=== PATIENT | female | born 1995 | race Caucasian/White ===

== ENCOUNTER 2018-08-10 10:37 | Emergency (ER) | payer OTHER ==
--- OUTSIDE RECORDS SUMMARY | 2018-08-10 10:53 | XMS REPORT | Continuity of Care Document ---
:1995 External Reference #:[id number] Author Name Nilo Islas NP Address [address] [place] [id number] Care Team Providers Name Role Phone Nilo Islas NP Care Team Information [employer] Unavailable Payers Date Identification Numbers Payment Provider Subscriber Effective: 2016 Policy Number: [id number] [facility] [place] Expires: 2018 PayID: [id number] [address] [address] [place] [phone] Policy Number: [id number] [facility] [place] PayID: [id number] [address] [address] [place] [address] Advance Directives Description No Information Available Problems Description No Information Family History Date Family Member(s) Observation Comments Father Hypercholesterolemia Mother Good Health Children None First Sister Good Health Social History Type Date Description Comments Sex Unknown Marital Status Single Occupation Student Tobacco Use Start: Unknown Currently Smokes an Occasional Cigar ETOH Use Occasionally consumes alcohol Tobacco Use Start: Unknown Patient is a current smoker, smokes some days Allergies, Adverse Reactions, Alerts Date Description Reaction Status Severity Comments 07/03/2015 Sulfa Antibiotics Active Medications Medication Date Status Form Strength Qnty SIG Indications Ordering Provider Fluoxetine HCL 08/08 Active Capsules 40mg 60cap 1 by F41.9 s mouth Nilo, every day [employer]ANT Temazepam 06/30 Active Capsules 15mg 60cap 1 - 2 by s mouth Nilo, every [employer]ANT night at bedtime as needed. Alprazolam 05/30 Active Tablets 0.25mg 90tab one by F41.9 s mouth Nilo, three [employer]OVEMENT CONSULTANT times a day as needed. Lo Loestrin Fe 07/21 Active Tablets 1mg-10 28tab take 1 mcg / 10 s tablet by Nilo, mcg mouth [employer] IM[employer]OVEMENT CONSULTANT every day Methylprednisolone 07/13 Hx Tablets 4mg 1pack as directed Nilo, - dose pack [employer] IM[employer]OVEMENT CONSULTANT 08/08 Fluoxetine HCL 06/13 Hx Capsules 20mg 30cap 1 by F41.9 Janel, (PMDD) s mouth Nilo, - every day [employer]OVEMENT CONSULTANT 08/08 Fluoxetine HCL 05/30 Hx Capsules 10mg 30cap 1 by F41.9 Graham s mouth Nilo, - everyday [employer] IMPROVEMENT CONSULTANT 06/13 Azithromycin 08/26 Hx Tablets 250mg 6tabs 2 by R06.02 Graham mouth Nilo, - every day CONT[employer] IMPROVEMENT CONSULTANT 11/19 x 1 day then 1 by mouth every day x 4 days Proventil HFA 08/26 Hx Aerosol 108(90Bas 1unit inhale 2 R06. e) s puffs by Nilo, - mcg/Act mouth [employer] IM[employer]OVEMENT CONSULTANT 11/19 every hours as needed Guaifenesin ac 08/26 Hx Syrup 100-10mg/ 120ml 1-2 R06. 5ML teaspoon Nilo, - by mouth [employer]OVEMENT CONSULTANT 11/19 every hours as needed Lo Estren 07/08 Hx Nilo, - [employer]OVEMENT CONSULTANT 07/08 Loestrin 1.5/30 (21) 07/08 Hx Tablets 1.5-30mg- 1Pack as mcg directed Nilo, - [employer]ANT 07/21 Immunizations CPT Code Status Date Vaccine Lot # [id number] Refused 06/13/2018 Influenza Vac, Quadrivalent, Split, 0.5mL Dosage, Im Use Vital Signs Date Vital Result Comment 08/08/2018 4:18pm Body Temperature 97.9 F Heart Rate 59 /min BP Systolic 132 mmHg BP Diastolic 76 mmHg Weight 123.00 lb BMI (Body Mass Index) 19.3 kg/m2 Height 67 inches 5'7" Respiratory Rate 16 /min O2 % BldC Oximetry 99 % 07/12/2018 5:08pm Body Temperature 97.9 F Heart Rate 86 /min BP Systolic 120 mmHg BP Diastolic 78 mmHg Weight 127.00 lb BMI (Body Mass Index) 19.9 kg/m2 Height 67 inches 5'7" O2 % BldC Oximetry 99 % 07/06/2018 11:23am Body Temperature 98.4 F Heart Rate 80 /min BP Systolic 130 mmHg BP Diastolic 76 mmHg Weight 130.00 lb BMI (Body Mass Index) 20.5 kg/m2 Height 66.75 inches 5'6.75" Respiratory Rate 17 /min 06/30/2018 4:02pm Body Temperature 98.2 F Heart Rate 78 /min BP Systolic 124 mmHg BP Diastolic 76 mmHg Weight 130.00 lb BMI (Body Mass Index) 20.5 kg/m2 Height 66.75 inches 5'6.75" Respiratory Rate 16 /min 06/13/2018 3:33pm Body Temperature 97.7 F Heart Rate 74 /min BP Systolic 110 mmHg BP Diastolic 70 mmHg Weight 137.00 lb BMI (Body Mass Index) 21.6 kg/m2 Height 66.75 inches 5'6.75" Respiratory Rate 16 /min 05/30/2018 11:10am BP Systolic 164 mmHg BP Diastolic 100 mmHg Weight 134.00 lb 11/19/2017 2:52pm BP Systolic 118 mmHg BP Diastolic 70 mmHg Weight 136.00 lb BMI (Body Mass Index) 21.9 kg/m2 Height 66.0 inches 5'6" 08/27/2015 2:30pm Body Temperature 100.7 F Heart Rate 76 /min BP Systolic 122 mmHg BP Diastolic 70 mmHg Weight 135.00 lb 07/23/2015 4:48pm Urine Dipstick - Blood NEGATIVE Urine Dipstick - Protein NEGATIVE Urine Dipstick - Glucose NEGATIVE Urine Dipstick - Leukocytes NEGATIVE 07/11/2015 7:09pm Urine Dipstick - Blood NEGATIVE Urine Dipstick - Protein TRACE Urine Dipstick - Glucose NEGATIVE Urine Dipstick - Leukocytes NEGATIVE 07/03/2015 3:27pm Body Temperature 99.4 F BP Systolic 100 mmHg BP Diastolic 62 mmHg Weight 131.50 lb BMI (Body Mass Index) 21.2 kg/m2 Height 66 inches 5'6" Urine Dipstick - Blood NEGATIVE Urine Dipstick - Protein 1+ Urine Dipstick - Glucose NEGATIVE Urine Dipstick - Leukocytes NEGATIVE Left ear audiology results R Right ear audiology results R Results Test Date Facility Test Result H/L Range Note Laboratory test [facility] 1 finding [phone] [facility] <SEE NOTE> Affirm [facility] Trichomonas Negative Negative 8 Vaginalis Gardnerella Vaginalis Negative Negative [facility] Species Negative Negative GC/Chlamydia By Dna 11/19/2017 [facility] Chlamydia by Dna NEGATIVE Negative Probe Probe GC by Dna Probe NEGATIVE Negative Laboratory test finding 11/19/2017 [facility] Pap SEE NOTE 2 Laboratory test finding 08/02/2015 [facility] Potassium 4.3 mmol/L 3.5-5.2 3 Lipid Treatment 07/23/2015 [facility] Cholesterol 171 mg/dL 50-199 4 Triglycerides 87 mg/dL 30-200 HDL 67 mg/dL 35-85 5 Chol/ HDL Ratio 2.6 ratio Low 3.7-5.6 VLDL 17 mg/dL 2-29 LDL (Calc) 87 mg/dL 20-99 6 Alt 17 U/L 3-42 Ast 20 U/L 8-42 CBC With Auto Diff 07/23/2015 [facility] WBC 8.2 K/uL 4.1-11.0 RBC 4.78 M/uL 4.00-5.40 Hemoglobin 14.5 gm/dL 12.0-16.0 Hematocrit 43.5 % 36.0-47.0 MCV 91.1 fL 80.0-97.0 MCH 30.3 pg 27.0-32.0 MCHC 33.3 g/dL 32.0-36.0 RDW 13.1 % 11.5-14.5 PLT Count 232 K/ul 140-400 Neutrophil 61.6 % 35.0-75.0 Lymphocyte 31.0 % 16.0-52.0 Monocyte 6.7 % 2.0-10.0 Eosinophil 0.5 % 0.0-5.0 Basophil 0.2 % 0.0-4.0 Abs Neutrophils 5.1 K/uL 2.1-8.0 Abs Lymphocytes 2.5 K/uL 0.8-5.5 Abmon 0.6 K/uL 0.1-1.0 Abs Eosinophils 0.0 K/uL 0.0-0.5 Abs Basophils 0.0 K/uL 0.0-0.3 Laboratory test finding 07/23/2015 [facility] TSH 1.50 uIU/mL 0.35-4.94 Comprehensive Metabolic (CMP) 07/23/2015 [facility] Sodium 137 mmol/L 134- 142 Potassium 5.4 No visible h <SEE NOTE> mmol/L High 3.5-5.2 7 Chloride 102 mmol/L 97-109 Carbon Dioxide 25 mmol/L 24-34 Glucose 73 mg/dL 70-105 BUN 13 mg/dL 6-26 Creatinine 0.8 mg/dL 0.5-1.4 Calcium 9.5 mg/dL 8.5-10.2 Total Protein 7.3 g/dL 6.0-8.0 Albumin 4.6 g/dL 3.6-4.9 Globulin 2.7 g/dL 2.0-3.5 A/G Ratio 1.7 Ratio 1.0-2.2 Total Bilirubin 0.6 mg/dL 0.1-1.3 Alkaline Phosphatase 31 U/L 24-140 Alt 17 U/L 3-42 Ast 20 U/L 8-42 Anion Gap 15 mmol/L High 6-14 Sybil Egfr >60 >60 8 Non Sybil Egfr >60 >60 9 Microalb/Creat Panel 07/11/2015 [facility] Creatinine, Urine 118.1 mg/dL Microalb/Creat Urine 37.67 ug/mgCreat High 0.00-30.00 Microalbumin 44.5 ug/ml High 0.0-20.0 Laboratory test 07/03/2015 [facility] Pap SEE NOTE 10, 11 finding Affirm 07/03/2015 [facility] Trichomonas Negative Negative Vaginalis Gardnerella Vaginalis Negative Negative Kaylyn Species Negative Negative Rout Urine W/ Micro -RL 07/03/2015 [facility] Color YELLOW Appearance CLEAR Spec Grav Urine 1.027 (1.003-1.030) PH Urine 7.0 (5.0-7.5) Leuk Esterase NEGATIVE (Neg) Nitrite Urine NEGATIVE (Neg) Protein Urine 1+ Abnormal (Neg) Glucose Urine NEGATIVE (Neg) Ketone Urine TRACE (Neg) Urobilinogen 0.2 mg/dL (0-1.0) Bilirubin Urine NEGATIVE (Neg) Blood/HGB Urine NEGATIVE (Neg) Epithelial Cells 1+ [HPF] Abnormal (Neg) Hyaline Casts 2.0 [LPF] (0-5) Bacteria NEGATIVE [HPF] (Neg) Urine WBC 1.3 [HPF] (0-8) Urine RBC 2.2 [HPF] (0-3) 12 GC/Chlamydia By Dna 07/03/2015 [facility] Chlamydia by Dna NEGATIVE Negative Probe Probe GC by Dna Probe NEGATIVE Negative Laboratory test finding 07/03/2015 [facility] <SEE [phone] NOTE> [address] [place] [address] Amplified Molecular High Risk HPV Test Patient Name:FOREST MANUEL Patient :1995 Ordering Physician:NILO ISLAS [facility] Accession Number [id number] Specimen(s) Received A: High Risk HPV SP Cervical/Endocervical Pap Smear - One Vial Other Case Numbers: [id number] Diagnosis RISK GROUPS RESULTS High Risk NEGATIVE Tested for HPV Types (16, 18, 31, 33, 35, 39, 45, 51, 52, 56, 58, 59, 66, 68) Comments The performance characteristics of the SurePath residual specimen tested for this assay were validated by [facility] and licensed for use by the [facility]. This test has not been licensed by the FDA and the result is not intended to be used as the sole means for clinical diagnosis or patient management. Negative results do not rule out the presence of disease. Reported: 11/24/2017 07:48 Electronically Signed Out By Rosy Gramajo isaac Majano [address] [facility], [facility]. [address] [place] [address] CYTOLOGY REPORT Source of Specimen(s): SurePath Cervical / Endocervical Pap Smear - One Vial Date of Last Menstrual Period: None Provided Other Clinical Conditions: HPV ASSAY REQUESTED Specimen Adequacy SATISFACTORY FOR EVALUATION PRESENCE OF ENDOCERVICAL/TRANSFORMATION ZONE COMPONENT General Categorization NEGATIVE FOR INTRAEPITHELIAL LESION OR MALIGNANCY Interpretation NEGATIVE FOR INTRAEPITHELIAL LESION OR MALIGNANCY Comment HPV testing will be performed and a separate report will be issued. Reported: 11/23/2017 09:07 Electronically Signed Out By Mayi REGAN(ASCP) artem ICD9 Code: Z01.419 CPT code: A: [id number] Unless otherwise specified, testing performed by [facility] [place] [id number] 3 This sample is drawn by:[email or web address] 4 This sample is drawn by:marino 5 Per NCEP ATP III Guidelines: Results lower than 40 mg/dL are suggestive of increased risk for coronary artery disease. Results > or=to 60 mg/dL are considered a negative risk factor. 6 Per NCEP ATP III Guidelines: Normal Population <130 Patients with medical conditions: CHD/DM Optimal: <100 Borderline high: 130-159 High: 160-189 Very high: >189 7 5.4 No visible hemolysis. 8 Concerning GFR Guidelines for Americans: Normal function or mild renal disease, if clinically at risk: >/=60 mL/min Moderately decreased: 30-59 Severely decreased: 15-29 Renal failure: <15 9 Concerning GFR Guidelines: Normal function or mild renal disease, if clinically at risk: >/=60 mL/min Moderately decreased: 30-59 Severely decreased: 15-29 Renal failure: <15 Glomerular Filtration Rate (GFR) is estimated based on the MDRD equation, which assumes a steady state for creatinine as recommended by the National Kidney Disease Education Program in conjunction with the National Institutes of Health and the National Kidney Foundation. Clinical conditions in which it may be necessary to measure GFR by using clearance methods include extremes of age and body size, severe malnutrition or obesity, diseases of skeletal muscle, paraplegia or quadriplegia, vegetarian diet, rapidly changing kidney function, and calculation of the dose of potentially toxic drugs that are excreted by the kidneys. 10 This sample is drawn by:[email or web address] 11 [facility]. [address] [place] [address] GYNECOLOGIC CYTOLOGY REPORT Accession Number: [id number] Source of Specimen(s): A: [facility] Cervical / Endocervical Pap Smear - One Vial Clinical Diagnosis and History: Date of Last Menstrual Period: None Provided Other Clinical Conditions: HPV ASSAY REQUESTED Specimen Adequacy Satisfactory for evaluation Presence of endocervical/transformation zone component General Categorization Negative for intraepithelial lesion or malignancy Interpretation NEGATIVE FOR INTRAEPITHELIAL LESION OR MALIGNANCY Recommendations HPV testing will be performed and a separate report will be issued. Reported: 07/08/2015 Electronically Signed Out By Zari REGAN(ASCP) [facility] dol Unless otherwise specified, testing performed by [facility] [address] [place] [id number] Unless otherwise specified, testing performed by [facility] [address] [place] [id number] [facility] [address] [address] Amplified Molecular High Risk HPV Test Accession Number [id number] Specimen(s) Received A: High Risk HPV SP Cervical/Endocervical Pap Smear - One Vial Other Case Numbers: [id number] Diagnosis RISK GROUPS RESULTS High Risk NEGATIVE Tested for HPV Types (16, 18, 31, 33, 35, 39, 45, 51, 52, 56, 58, 59, 66, 68) Comments The performance characteristics of the SurePath residual specimen tested for this assay were validated by [facility] and licensed for use by the [facility] of [facility]. This test has not been licensed by the FDA and the result is not intended to be used as the sole means for clinical diagnosis or patient management. Negative results do not rule out the presence of disease. Reported: 07/08/2015 16:29 Electronically Signed Out By Yesy Reagan [email or web address] Procedures Date Code Description Status 08/27/2015 08873 Airway Inhalation Treatment Completed Encounters Type Date Location Provider Dx Diagnosis Office Visit 07/12/2018 Nilo Valenzuela, F41.9 Anxiety disorder, 4:30p [employer] CONSULTANT unspecified H65.04 Acute serous otitis media, recurrent, RIGHT ear Z68.1 Body mass index (BMI) 19.9 or less, adult Office Visit 07/06/2018 11:30a Rito Valenzuela MD J06.9 Acute upper respiratory infection, unspecified Office Visit 06/30/2018 3:45p Nilo Valenzuela F41.9 Anxiety disorder, [employer] CONSULTANT unspecified Office Visit 06/13/2018 3:30p Nilo Valenzuela F41.9 Anxiety disorder, [employer] CONSULTANT unspecified Office Visit 05/30/2018 11:00a Nilo Valenzuela F41.9 Anxiety disorder, [employer] CONSULTANT unspecified Office Visit 11/19/2017 2:45p Nilo Valenzuela, H72.02 Central perforation of CONT[employer]OVEMENT CONSULTANT tympanic membrane, LEFT ear 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.419 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 findings Office Visit 08/27/2015 2:15p Nilo Valenzuela NP R06.02 Shortness of breath J20.9 Acute bronchitis, unspecified J01.90 Acute sinusitis, unspecified Office Visit 07/03/2015 3:00p Nilo Valenzuela NP Z00.00 Encntr for general adult medical exam w/o abnormal findings Z72.51 High risk heterosexual behavior Z11.3 Encntr screen for infections w sexl mode of transmiss Plan of Treatment Future Appointment(s):08/22/2018 4:00 pm - Nilo Islas NP at [facility]2018 - Nilo Islas NPF41.9 Anxiety disorder, unspecifiedNew Medication: Fluoxetine HCL 40 mg - 1 by mouth every dayFollow up:2 pttnvO44.1 Body mass index (BMI) 19.9 or less, adult
--- OUTSIDE RECORDS SUMMARY | 2018-08-10 10:53 | XMS REPORT | Continuity of Care Document ---
:1995 External Reference #:[id number] Author Name Nilo Islas NP Address [address] [place] [id number] Care Team Providers Name Role Phone Nilo Islas NP Care Team Information Organ [employer] Unavailable Payers Date Identification Numbers Payment Provider Subscriber Effective: 2016 Policy Number: [id number] [facility] Expires: 2018 PayID: [id number] [address] [address] [place] [phone] Policy Number: [id number] [facility] [place] PayID: [id number] [address] [address] [place] [address] Advance Directives Description No Information Available Problems [...] Form Strength Qnty SIG Indications Ordering Provider Temazepam 06/30/ Active Capsules 15mg 60caps 1 - 2 by Janel, 2018 mouth Nilo, every [employer]OWER [employer] night at bedtime as needed. Fluoxetine HCL 06/13/ Active Capsules 20mg 30caps 1 by mouth F41.9 Janel, (PMDD) 2019 every day HEATHER Petersen Alprazolam 05/30/ Active Tablets 0.25mg 90tabs one by F41.9 Janel, 2018 mouth Nilo, three [employer]OWER [employer]IC times a day as needed. Lo Loestrin Fe 07/21/ Active Tablets 1mg-10 mcg 28tabs take 1 Janel2015 / 10 mcg tablet by aguila Petersen [employer]OWER MECH[employer]IC every day Fluoxetine HCL 05/30/ Hx Capsules 10mg 30caps 1 by mouth F41.9 Janel, 2018 - everyday Nilo, [employer]OWER [employer]CH[employer]IC 2018 Azithromycin 08/26/ Hx Tablets 250mg 6tabs 2 by mouth R06.02 Janel, 2015 - every day Nilo, 11/19/ x 1 day [employer] 2018 then 1 by mouth every day x 4 days Proventil HFA 08/26/ Hx Aerosol 108(90Base 1units inhale 2 R06.02 Janel, 2015 - ) mcg/Act puffs by Nilo, 11/19/ mouth [employer]OWER [employer]CH[employer]IC 2017 every 4 hours as needed Guaifenesin ac 08/26/ Hx Syrup 100-10mg/5 120ml 1-2 R06.02 Janel, 2015 - ML teaspoon Nilo, 11/19/ by mouth [employer] 2017 every 4 hours as needed Lo Estren 07/08/ Hx Janel, 2015 - Nilo, [employer]OWER MECH[employer]IC 2015 Loestrin 1.5/30 07/08/ Hx Tablets 1.5-30mg-m 1Pack as Janel (21) 2015 - cg directed Nilo, [employer]OWER [employer]CH[employer]IC 2015 Immunizations CPT Code Status Date Vaccine Lot # [id number] Refused 06/13/2018 Influenza Vac, Quadrivalent, Split, 0.5mL Dosage, Im Use Vital Signs Date Vital Result Comment 07/12/2018 5:08pm Body Temperature 97.9 F Weight 127.00 lb Heart Rate 86 /min BP Systolic 120 mmHg BP Diastolic 78 mmHg Height 67 inches 5'7" O2 % BldC Oximetry 99 % BMI (Body Mass Index) 19.9 kg/m2 07/06/2018 11:23am Body Temperature 98.4 F Weight 130.00 lb Heart Rate 80 /min BP Systolic 130 mmHg BP Diastolic 76 mmHg Respiratory Rate 17 /min Height 66.75 inches 5'6.75" BMI (Body Mass Index) 20.5 kg/m2 06/30/2018 4:02pm Body Temperature 98.2 F Weight 130.00 lb Heart Rate 78 /min BP Systolic 124 mmHg BP Diastolic 76 mmHg Respiratory Rate 16 /min Height 66.75 inches 5'6.75" BMI (Body Mass Index) 20.5 kg/m2 06/13/2018 3:33pm Body Temperature 97.7 F Weight 137.00 lb Heart Rate 74 /min BP Systolic 110 mmHg BP Diastolic 70 mmHg Respiratory Rate 16 /min Height 66.75 inches 5'6.75" BMI (Body Mass Index) 21.6 kg/m2 05/30/2018 11:10am Weight 134.00 lb BP Systolic 164 mmHg BP Diastolic 100 mmHg 11/19/2017 2:52pm Weight 136.00 lb BP Systolic 118 mmHg BP Diastolic 70 mmHg Height 66.0 inches 5'6" BMI (Body Mass Index) 21.9 kg/m2 08/27/2015 2:30pm Body Temperature 100.7 F Weight 135.00 lb Heart Rate 76 /min BP Systolic 122 mmHg BP Diastolic 70 mmHg 07/23/2015 4:48pm Urine Dipstick - Blood NEGATIVE Urine Dipstick - Protein NEGATIVE Urine Dipstick - Glucose NEGATIVE Urine Dipstick - Leukocytes NEGATIVE 07/11/2015 7:09pm Urine Dipstick - Blood NEGATIVE Urine Dipstick - Protein TRACE Urine Dipstick - Glucose NEGATIVE Urine Dipstick - Leukocytes NEGATIVE 07/03/2015 3:27pm Body Temperature 99.4 F Weight 131.50 lb BP Systolic 100 mmHg BP Diastolic 62 mmHg Height 66 inches 5'6" BMI (Body Mass Index) 21.2 kg/m2 Urine Dipstick - Blood NEGATIVE Urine Dipstick - Protein 1+ Urine Dipstick - Glucose NEGATIVE Urine Dipstick - Leukocytes NEGATIVE Left ear audiology results R Right ear audiology results R Results Test Date Facility Test Result H/L Range Note Laboratory test Lab [place] [facility] 1 finding [phone] [facility] <SEE NOTE> [facility] 8 Vag[facility]is Gardnerella Vaginalis Negative Negative Kay[facility] Species Negative Negative GC/Chlamydia By Dna 11/19/2017 [facility] Chlamydia by Dna NEGATIVE Negative Probe Probe GC by Dna Probe NEGATIVE Negative Laboratory test finding 11/19/2017 [facility] Pap SEE NOTE 2 Laboratory test finding 08/02/2015 [facility] Potassium 4.3 mmol/L 3.5-5.2 3 Lipid Treatment 07/23/2015 [facility] Cholesterol 171 mg/dL 50-199 4 Triglycerides 87 [...] NEGATIVE Negative Laboratory test finding 07/03/2015 [facility] [place] [facility] <SEE 13 [phone] NOTE> 1 Laboratory [place] [address] Amplified Molecular High Risk HPV Test Patient Name:FOREST MANUEL Patient :1995 Ordering Physician:NILO ISLAS [facility] Accession Number [id number] Specimen(s) Received A: High Risk HPV SP Cervical/Endocervical Pap Smear - One Vial Other Case Numbers: [id number] Diagnosis RISK GROUPS RESULTS High Risk NEGATIVE Tested for HPV Types (16, 18, 31, 33, 35, 39, 45, 51, 52, 56, 58, 59, 66, 68) Comments The performance characteristics of the SurePath residual specimen tested for this assay were validated by [facility] and licensed for use by the [facility]. This test has not been licensed by the FDA and the result is not intended to be used as the sole means for clinical diagnosis or patient management. Negative results do not rule out the presence of disease. Reported: 11/24/2017 07:48 Electronically Signed Out By Rosy Gramajo isaac Majano [address] [facility], [facility]. [facility] [place] [address] CYTOLOGY REPORT Source of Specimen(s): [facility] Cervical [...] artem ICD9 Code: Z01.419 CPT code: A: WP489MBC Unless otherwise specified, testing performed by [facility], [address] [address] 3 This sample is drawn by:[email or web address] 4 [...] 10 This sample is drawn by:ANDRZEJ [address] [facility]. [address] [place] [address] GYNECOLOGIC CYTOLOGY REPORT Accession Number: [id number] Source of Specimen(s): A: SurePath Cervical / [...] 07/08/2015 Electronically Signed Out By Zari REGAN(ASCP) [facility] dol Unless otherwise specified, testing performed by [facility] [address] [address] 12 Unless otherwise specified, testing performed by [facility] [employer] [address] [address] 13 [facility] [place] [address] Amplified Molecular High Risk HPV Test Accession Number [id number] Specimen(s) Received A: High Risk HPV SP Cervical/Endocervical Pap Smear - One Vial Other Case Numbers: [id number] Diagnosis RISK GROUPS RESULTS High Risk NEGATIVE Tested for HPV Types (16, 18, 31, 33, 35, 39, 45, 51, 52, 56, 58, 59, 66, 68) Comments The performance characteristics of the SurePath residual specimen tested for this assay were validated by [employer] and licensed for use by the [facility] of [facility]. This test has not been licensed by the FDA and the result is not intended to be used as the sole means for clinical diagnosis or patient management. Negative results do not rule out the presence of disease. Reported: 07/08/2015 16:29 Electronically Signed Out By Yesy Reagan [email or web address] Procedures Date Code Description Status 08/27/2015 14216 Airway Inhalation Treatment Completed Encounters Type Date Location Provider Dx Diagnosis Office Visit 07/06/2018 Rito Valenzuela MD J06.9 Acute upper 11:30a respiratory infection, unspecified Office Visit 06/30/2018 Nilo Valenzuela, F41.9 Anxiety disorder, 3:45p [employer]OWER MECH[employer]IC unspecified Office Visit 06/13/2018 Nilo Valenzuela F41.9 Anxiety disorder, 3:30p [employer]OWER MECH[employer] unspecified Office Visit 05/30/2018 Nilo Valenzuela F41.9 Anxiety disorder, 11:00a [employer]OWER MECH[employer]IC unspecified Office Visit 11/19/2017 Nilo Valenzuela, H72.02 Central perforation of 2:45p [employer]OWER MECH[employer] tympanic membrane, LEFT ear Z01.419 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) w/o abn findings Office Visit 08/27/2015 2:15p Nilo Valenzuela NP R06.02 Shortness of breath J20.9 Acute bronchitis, unspecified J01.90 Acute sinusitis, unspecified Office Visit 07/03/2015 3:00p Nilo Valenzuela NP Z00.00 Encntr for general adult medical exam w/o abnormal findings Z72.51 High risk heterosexual behavior Z11.3 Encntr screen for infections w sexl mode of transmiss Plan of Treatment Future Appointment(s):08/08/2018 4:00 pm - Nilo Islas NP at [place]2018 - Nilo Islas NPF41.9 Anxiety disorder, cuvruaazlavZ26.04 Acute serous otitis media, recurrent, RIGHT earZ68.1 Body mass index (BMI) 19.9 or less, adultAllFollow up:1 month
[2018-08-10 11:56] VITALS: BP 130/73
[2018-08-10] MEDS ORDERED: Acetaminophen TAB* 325 MG PO ONE (12:12)
--- NOTE | 2018-08-10 12:13 | UC ---
Head Injury HPI - HPI Summary HPI Summary: 22-year-old woman comes in with a chief complaint of head injury. This occurred this morning while at work. A cabinet door fell off its hinges and struck the patient in the top of the head anterior aspect. Patient had pain right away in the area where she was struck and also in her neck. Also felt slightly dazed. On the way here to clinic to light did bother her eyes. No other difficulties with vision. No problems with speech no focal neurologic deficit. No laceration. The headache is located on top of the head where she was struck. It hurts more when she pushes on it. She took some Excedrin but she is not sure if it helped with the headache. She has full range of motion of the neck. Pain is in the upper neck posterior aspect. Movement does not make the neck pain worse. No nausea or vomiting. No loss of consciousness. - History Of Current Complaint Chief Complaint: UCHeadInjury Stated Complaint: WC-HEAD INJ Time Seen by Provider: 08/10/18 11:54 Hx Last Menstrual Period: 07/31/18 Pain Intensity: 7 - Allergies/Home Medications Allergies/Adverse Reactions: Allergies Allergy/AdvReac Type Severity Reaction Status Date / Time Sulfa (Sulfonamide Allergy Hives Verified 08/10/18 11:42 Antibiotics) Home Medications: Home Medications ALPRAZolam TAB* [Xanax TAB*] 0.25 mg PO TID PRN 08/10/18 [History Confirmed ] SHO-DLVY-Lhezahtc Es (Nf) [Excedrin Extra Strength 250-250-65 mg (NF)] 2 tab PO ONCE PRN 08/10/18 [History Confirmed 08/10/18] FLUoxetine CAP* [PROzac CAP*] 40 mg PO DAILY 08/10/18 [History Confirmed ] Temazepam 1 - 2 mg PO QPM PRN 08/10/18 [History Confirmed 08/10/18] PMH/Surg Hx/FS Hx/Imm Hx Previously Healthy: Yes Psychological History: Anxiety - Surgical History Surgical History: Yes Surgery Procedure, Year, and Place: tonsils adenoids 2001 - Family History Known Family History: Positive: Non-Contributory - Social History Alcohol Use: Weekly Alcohol Amount: 4 Substance Use Type: None Smoking Status (MU): Current Some Day Smoker Type: Cigars Review of Systems All Other Systems Reviewed And Are Negative: Yes Constitutional: Positive: Negative Skin: Positive: Negative Eyes: Positive: Photophobia. Negative: Blurred Vision ENT: Positive: Negative Respiratory: Positive: Negative Cardiovascular: Positive: Negative Gastrointestinal: Positive: Negative. Negative: Vomiting, Nausea Motor: Positive: Negative Neurovascular: Positive: Negative Musculoskeletal: Positive: Negative Neurological: Positive: Headache Psychological: Positive: Negative Is Patient Immunocompromised?: No Physical Exam Triage Information Reviewed: Yes Appearance: Well-Appearing, No Pain Distress, Well-Nourished Vital Signs: Initial Vital Signs Temp 98.3 F 08/10/18 11:49 Pulse 62 08/10/18 11:49 Resp 18 08/10/18 11:49 BP 130/73 08/10/18 11:49 Pulse Ox 100 08/10/18 11:49 Vital Signs Reviewed: Yes Eye Exam: Normal Eyes: Positive: Conjunctiva Clear, Other: - PERRLA/EOMI. NO PHOTOPHOBIA ENT: Positive: TMs normal - NO HEMOTYMPANUM. Negative: Nasal drainage Neck: Positive: Supple, Other: - MILD TENDERNESS TO PALPTION MIDLINE UPPER CERVICAL NECK Respiratory: Positive: Lungs clear, Normal breath sounds, No respiratory distress Cardiovascular: Positive: RRR Musculoskeletal Exam: Normal Musculoskeletal: Positive: Strength Intact, ROM Intact Neurological Exam: Normal Neurological: Positive: Alert, Muscle Tone Normal Psychological Exam: Normal Psychological: Positive: Age Appropriate Behavior Skin Exam: Normal Head Injury Course/Dx - Course Course Of Treatment: Patient felt slightly dazed after the injury and has had some mild photophobia. No vomiting or nausea. No focal neurologic deficits. Patient's headache is directly in the area that she was struck it is not global. Neck is mild tenderness in the midline in the upper neck however there is no pain with range of motion. We discussed imaging head CT and C-spine CT. At this time by symptoms patient has a mild concussion. Patient declined imaging of her head and neck this time. Patient was given concussion information. Patient knows to rest and to avoid activities that worsen her symptoms. If the patient worsens or has any other questions concern she needs immediate reevaluation. - Differential Dx/Diagnosis Provider Diagnosis: Concussion, Head injury, Cervical strain Discharge - Sign-Out/Discharge Documenting (check all that apply): Patient Departure All imaging exams completed and their final reports reviewed: No Studies - Discharge Plan Condition: Stable Disposition: HOME Patient Education Materials: Cervical Strain (ED), Concussion (ED), Head Injury (ED) Forms: *Work Release Referrals: Lauren Islas NP [Primary Care Provider] - Additional Instructions: FOLLOW UP WITH YOUR DOCTOR IF NOT COMPLETELY IMPROVED. GET RECHECKED SOONER FOR ANY WORSENING OF YOUR CONDITION; PAIN, WEAKNESS, NUMBNESS, DIFFICULTY WITH VISION OR SPEECH, UNEXPLAINED VOMITING OR QUESTIONS OR CONCERNS. - Billing Disposition and Condition Condition: STABLE Disposition: Home
== END 2018-08-10 12:31 | disposition home or self-care (01) ==
LOC: UCCORT 10:37
DX: S06.0X0A Concussion without loss of consciousness, initial encounter (principal); S16.1XXA Strain of muscle, fascia and tendon at neck level, initial encounter; F41.9 Anxiety disorder, unspecified; F17.210 Nicotine dependence, cigarettes, uncomplicated; Z79.899 Other long term (current) drug therapy; W20.8XXA Other cause of strike by thrown, projected or falling object, initial encounter; Y92.9 Unspecified place or not applicable; Z88.2 Allergy status to sulfonamides
CPT/HCPCS: 99202; A9270-GY; G0463